=== PATIENT | male | born 1970 | race Caucasian/White ===

== ENCOUNTER 2021-01-18 18:40 | Emergency (ER) | payer OTHER ==
[~2021-01-18 18:40] MED LIST: KEFLEX CAP 500500 MG PO; NORCO 5-325 TA1 EACH PO; PERCOCET 5-3251 EACH PO; PERCOCET 5/325 T1 EA PO; REGLAN 10 MG TA10 MG PO; ZOFRAN ODT 4 MG4 MG SL; ZOFRAN4 MG PO
[2021-01-18] MEDS ORDERED: CYCLOBENZAPRINE10 MG PO (19:45)
== END 2021-01-18 20:08 | disposition home or self-care (01) ==
LOC: ER1 18:40
DX: S86.911A Strain of unspecified muscle(s) and tendon(s) at lower leg level, right leg, initial encounter (principal); Z88.0 Allergy status to penicillin; X58.XXXA Exposure to other specified factors, initial encounter
CPT/HCPCS: 96372; 99283; J1885